=== PATIENT | male | born 1955 | race Caucasian/White ===

== ENCOUNTER 2020-07-10 10:18 | Day surgery (SDC) | payer BC ==
[2020-07-07 14:56] VITALS: BMI 42.5
[~2020-07-10 10:18] MED LIST: SODIUM CHLORIDE 0.9% 1,000 ML IV SCH
[2020-07-10] MEDS ORDERED: SODIUM CHLORIDE 0.9% 500 ML 500 ML IV ONE (10:30)
[2020-07-10] MEDS ORDERED: fentaNYL (PF) 50 MCG/ML 2 ML AMP ONE (11:04)
[2020-07-10 11:05] LABS: African American GFR (CKD) >90 (>60 ml/min/1.73 sqM); Anion Gap 4 mmol/L; Blood Urea Nitrogen 22 mg/dL (9-20); Calcium 9.1 mg/dL (8.4-10.2); Carbon Dioxide 28 mmol/L (22-30); Chloride 109 mmol/L (98-107); Glucose 101 mg/dL (74-99); Non-African American GFR(CKD) 81 (>60 ml/min/1.73 sqM); Potassium 4.7 mmol/L (3.5-5.1); Sodium 141 mmol/L (137-145)
[2020-07-10] MEDS ORDERED: PROPOFOL 10 MG/ML 20 ML VIAL IV ONE (11:47)
[2020-07-10] MEDS ORDERED: LIDOCAINE 1% INJ 10MG/ML (20 ML MDV) ONE (11:47)
[2020-07-10] MEDS ORDERED: SODIUM CHLORIDE 0.9% 1,000 ML IV ONE (12:01)
[2020-07-10 12:09] VITALS: TEMP 98.4
[2020-07-10 12:19] VITALS: RESP 16
[2020-07-10 13:34] VITALS: BP 142/82; PULSE 79
--- NOTE | 2020-07-11 10:59 | P.TEE ---
Description of Procedure(s): Date of procedure: 07/10/2020 Procedure performed: Transesophageal Echocardiogram with color flow doppler, pulsed wave doppler and continuous wave doppler, Cardioversion Moderate conscious sedation: Moderate conscious sedation was supplied by anesthesia, see separate report Complications: none Indications: Symptomatic Afib History: Patient is a pleasant 64 year old male with history of hypertension and persistent Afib. He had LOLA and cardioversion approximately 4 years ago and had been feeling fairly well however went back into Afib. Therefore decision was made to perform LOLA/cardioversion. PROCEDURE: After the risks, benefits and alternatives of the above mentioned procedure was explained in detail with the patient, informed consent was obtained. Patient was brought to the lab in a fasting state. Patient was sedated by anesthesia. The throat was sprayed with Hurricane to anesthetize the throat. A lubricated Omni probe was then introduced into the esophagus and stomach and multiple views were obtained. 2D echo with color flow doppler, pulsed wave doppler and continuous wave doppler was utilized. Agitated saline bubbles were injected to assess for any intra-atrial shunt. The probe was then removed. Direct current cardioversion was attempted with 300J which was unsuccessful however was successful with 360J with resultant sinus rhythm. Patient tolerated the procedure well. Patient was transferred to the post procedure area in stable and satisfactory condition. FINDINGS: 1. The aortic valve is tricuspid and function normally. There is no aortic stenosis and trace aortic insufficiency. 2. The mitral valve appears be normal with trace mitral regurgitation. 3. Tricuspid valve appears to be normal. 4. The interatrial septum is intact. No evidence of PFO. 5. Left atrial appendage is free of clot. 6. Left ventricular size and function appear to be normal with LV EF 55% 7. The left atrium is mildly dilated.
== END 2020-07-10 13:42 | disposition home or self-care (01) ==
LOC: CATHCVL 10:18
PROVIDERS: ATTEND Internal Medicine
DX: I48.0 Paroxysmal atrial fibrillation (principal); I10 Essential (primary) hypertension; Z87.891 Personal history of nicotine dependence; Z79.01 Long term (current) use of anticoagulants; Z79.899 Other long term (current) drug therapy; G47.33 Obstructive sleep apnea (adult) (pediatric); E78.5 Hyperlipidemia, unspecified; Z82.49 Family history of ischemic heart disease and other diseases of the circulatory system
CPT/HCPCS: 93312; 93320; 93325; 92960; 80048; 87635; J2001; J2704; 93005

== ENCOUNTER → 2020-08-19 | Outpatient (CLI) | payer BC ==
[2020-08-19 10:43] LABS: HCT 46.7 % (39.0-53.0); HGB 15.8 gm/dL (13.0-17.5); MCH 29.5 pg (25.0-35.0); MCHC 33.9 g/dL (31.0-37.0); Mean Platelet Volume 7.8; Platelet Count 250 k/uL (150-450); RBC 5.37 m/uL (4.30-5.90); RDW 12.8 % (11.5-15.5); WBC 7.2 k/uL (3.8-10.6)
[2020-08-19 11:11] LABS: African American GFR (CKD) >90 (>60 ml/min/1.73 sqM); Anion Gap 7 mmol/L; Blood Urea Nitrogen 21 mg/dL (9-20); Carbon Dioxide 28 mmol/L (22-30); Chloride 105 mmol/L (98-107); Non-African American GFR(CKD) 83 (>60 ml/min/1.73 sqM); Potassium 4.8 mmol/L (3.5-5.1); Sodium 140 mmol/L (137-145)
== END | disposition home or self-care (01) ==
LOC: LABPAT 10:13
PROVIDERS: ATTEND Internal Medicine Clinical Cardiac Electrophysiology
DX: Z01.812 Encounter for preprocedural laboratory examination (principal); I48.0 Paroxysmal atrial fibrillation
CPT/HCPCS: 36415; 80051; 82565; 84520; 85027

== ENCOUNTER 2020-09-03 09:23 | Day surgery (SDC) | payer BC ==
[2020-08-25 10:20] VITALS: BMI 43.2
[2020-09-03] MEDS: SODIUM CHLORIDE 0.9% 1,000 ML IV SCH (10:00)
[2020-09-03] MEDS ORDERED: ePHEDrine SULFATE/0.9% NACL/PF 50 MG/5 ML SYRINGE IV ONE (12:15)
[2020-09-03] MEDS ORDERED: PROPOFOL 10 MG/ML 20 ML VIAL IV ONE (12:15)
[2020-09-03] MEDS ORDERED: ROCURONIUM 10 MG/ML (5 ML VIAL) IV ONE (12:15)
[2020-09-03] MEDS ORDERED: GLYCOPYRROLATE 0.2 MG/ML 2 ML VIAL ONE (12:15)
[2020-09-03] MEDS ORDERED: MIDAZOLAM 2 MG/2 ML VIAL ONE (12:15)
[2020-09-03] MEDS ORDERED: LIDOCAINE 1% INJ 10MG/ML (20 ML MDV) ONE ×2 (12:15→12:57)
[2020-09-03] MEDS ORDERED: FUROSEMIDE 10 MG/ML 2 ML VIAL ONE (12:15)
[2020-09-03] MEDS ORDERED: PROTAMINE SULFATE 10 MG/ML 5 ML VIAL IV ONE (12:15)
[2020-09-03] MEDS ORDERED: fentaNYL (PF) 50 MCG/ML 2 ML AMP ONE (12:15)
[2020-09-03] MEDS ORDERED: PHENYLEPHRINE-0.9% NACL SYG 1,000 MCG/10 ML SYRINGE ONE (12:15)
[2020-09-03] MEDS ORDERED: SUCCINYLCHOLINE CHLORIDE VIAL 200 MG/10 ML VIAL IV ONE (12:15)
[2020-09-03] MEDS ORDERED: HEPARIN SODIUM,PORCINE 10,000 UNIT/ML 1 ML VIAL ONE (12:15)
[2020-09-03] MEDS ORDERED: NEOSTIGMINE 1 MG/ML 10 ML VIAL ONE (12:15)
--- NOTE | 2020-09-03 12:26 | P.HPCAR ---
History of Present Illness This is Dr. Echols dictating an H/P on this patient The patient was interviewed and examined IMPRESSION / ASSESSMENT: Persistent atrial fibrillation Failed electrical cardioversions and flecainide Complains of tiredness and fatigue low energy Central obesity Essential hypertension Obstructive sleep apnea on CPAP mask Preserved LV systolic function with relatively normal atria PLAN: Proceed with A. fib ablation Patient has no fever chills cough chest discomfort or any acute cardiac issues at this time that preclude general anesthesia HPI Increasing tiredness and fatigue Failed medical management for atrial fibrillation Today he denies any orthopnea PND No chest discomfort dizziness lightheadedness No fever chills cough expectoration ROS: No fever chills or rigors, no cough, phlegm or expectoration, no nausea, vomiting or diarrhea, no hematuria, dysuria, no musculoskeletal complaints, no strokes or seizures, no skin lesions. EXAMINATION: 98.1F, pulse rate in the 70s irregular Nonlabored breathing Heart sounds irregular no murmurs or gallops no rub Breath sounds are clear no rhonchi no crackles Extremities warm no edema REVIEW OF LABS, ECG & MEDICAL DATA Rhythm shows atrial fibrillation with controlled ventricular response Medications reviewed On amlodipine, myocarditis, xarelto, metoprolol and flecainide 100 mg twice daily He took Xarelto last evening Physical Exam Vitals: Vital Signs Temp Pulse Resp BP Pulse Ox 09/03/20 09:59 98.1 F 78 18 139/82 96 Intake and Output 09/02/20 09/03/20 09/03/20 22:59 06:59 14:59 Intake Total 100 Balance 100 Intake: IV 100 Past Medical History Past Medical History: Atrial Fibrillation, Hypertension, Osteoarthritis (OA), Sleep Apnea/CPAP/BIPAP Additional Past Medical History / Comment(s): uses CPAP sometimes, See Dr. Echols's H&P. FOR CARDIAC HISTORY History of Any Multi-Drug Resistant Organisms: None Reported Past Surgical History: Appendectomy, Cholecystectomy, Joint Replacement, Orthopedic Surgery, Tonsillectomy Additional Past Surgical History / Comment(s): left knee arthroscopy, left knee replaced, cardioversion Past Anesthesia/Blood Transfusion Reactions: Motion Sickness Smoking Status: Former smoker - Past Family History Father Family Medical History: Cancer Physical Examination Vital Signs Temp Pulse Resp BP Pulse Ox 09/03/20 09:59 98.1 F 78 18 139/82 96 Intake and Output 09/02/20 09/03/20 09/03/20 22:59 06:59 14:59 Intake Total 100 Balance 100 Intake: IV 100 Results Current Medications Generic Name Dose Route Start Last Admin Trade Name Dillan PRN Reason Stop Dose Admin Lactated Ringer's 1,000 mls @ 20 mls/hr 09/03/20 05:55 Lactated Ringers IV 10/03/20 05:56 .Q24H MARKUS Sodium Chloride 1,000 mls @ 20 mls/hr 09/03/20 05:55 09/03/20 10:00 Saline 0.9% IV 10/03/20 05:56 100 mls .Q24H MARKUS Administration Intake and Output 09/02/20 09/03/20 09/03/20 22:59 06:59 14:59 Intake Total 100 Balance 100 Intake: IV 100
[2020-09-03] MEDS ORDERED: LIDOCAINE 1% INJ 10MG/ML (20 ML MDV) SQ ONE (13:11)
[2020-09-03] MEDS ORDERED: HEPARIN SOD,PORK IN 0.45% NACL 25,000 UNIT in 0.45% NACL 1 250ML.BAG IV ONE (13:20)
[2020-09-03] MEDS ORDERED: HEPARIN SODIUM (1,000 UNIT/ML) 1,000 UNIT in SODIUM CHLORIDE 0.9% 1,000 ML IRRIGATION ONE (15:08)
[2020-09-03] MEDS ORDERED: SODIUM CHLORIDE 0.9% 1,000 ML IV ONE (15:30)
[2020-09-03] MEDS ORDERED: IOPAMIDOL-370 100ML BTL INJ ONE (16:13)
[2020-09-03] MEDS ORDERED: ACETAMINOPHEN IV (For NPO) 1,000 MG in EMPTY BAG 1 BAG IVPB ONE (16:25)
[2020-09-03] MEDS ORDERED: ACETAMINOPHEN TAB 325 MG TAB PO PRN (16:25)
--- NOTE | 2020-09-03 16:33 | P.EPPROC ---
- EP Procedure Note Electrophysiology Procedure Note: PROCEDURE A. fib ablation DIAGNOSIS Atrial fibrillation, symptomatic, refractory to therapy Persistent atrial fibrillation RESULT No left atrial appendage mass seen on intracardiac echo Successful A. fib ablation/pulmonary vein isolation of all veins using cryo- ablation Complete entrance block in all 4 veins confirmed No evidence for phrenic nerve injury Linear RF Ablation left atrial septum along fractionated electrograms Linear RF ablation left atrial roof Esophageal deflection YES Electrical cardioversion with a synchronized shock across the chest YES PROCEDURE DETAILS Patient was brought to the EP lab in a fasting state. Written informed consent was obtained prior to the procedure. Procedure performed under general anesthesia After initial muscle relaxant use, muscle relaxants were not given thereafter in order to assess phrenic nerve during procedure. Patient prepped and draped as per protocol Full cryo-set up with standard preparation of the cryoablation tools done. Femoral Venous access obtained on the right and left groins Venous and arterial Sheaths placed. Diagnostic catheters for the high right atrium, phrenic nerve stimulation and pacing, His bundle, RV and coronary sinus placed Intracardiac echo catheter placed. Long sheath placed in the right atrium Left and right transseptal catheterization performed under intracardiac echo guidance. Intravenous heparin with aCT above 300 Later, catheter positioning and balloon positioning in the left atrium, under intracardiac echo guidance Diagnostic EP study with Coronary sinus pacing and recording Baseline measurements Sinus cycle length 697 ms, NV interval 172 ms QRS 97 ms, QT 490 ms AH 160 ms, HV interval 41 ms Transseptal catheterization performed RA pressure 17/9 LA pressure 22/7/14 Transseptal catheterization performed with standard sheath. The cryoablation sheath was then placed with an over the wire exchange without any acute complications. All 4 pulmonary veins were isolated in the following sequence: Left superior followed by left inferior followed by right superior followed by right inferior The cryo-ablation balloon was placed at the os of each vein 1.5 mL of IV dye was injected to confirm an occluded vein Goal during cryoablation was to achieve complete occlusion of the pulmonary vein, achieve -30 degrees C at 30 seconds and achieve -40 degrees C at 60 seconds and a time to effect of less than 60-90 seconds, . If not the balloon was repositioned to obtain this result After completion of Cryoblation with durations from 180-240 seconds, entrance block was confirmed with the Attain circular catheter in a roving fashion around the antrum of the pulmonary veins Phrenic nerve pacing was performed from the SVC, right innominate vein area and diaphragm voltage was monitored. Diaphragmatic contractions were also monitored manually for strength of contraction. Parameter goals for each cryo freeze Complete occlusion of the appropriate vein -30 degrees C by 30 seconds -40 degrees C by 60 seconds Minimum between minus 40-55 degrees C Thaw time greater than 10 seconds Balloon visualized by intracardiac echo The esophagus was intubated. Esophageal Temperature monitoring with a CIRCA catheter formed. Esophageal deflection for hypothermia of the esophagus below 30 degrees C Left superior pulmonary vein Complete isolation, entrance block Left inferior pulmonary vein Complete isolation, entrance block Right superior pulmonary vein, during phrenic nerve pacing Complete isolation, entrance block Right inferior pulmonary vein, during phrenic nerve pacing Complete isolation, entrance block At the end of the procedure the Achieve catheter was once again used to check for entrance block Phrenic nerve stimulation was performed to confirm diaphragmatic stimulation the end of the procedure Cine fluoroscopy was performed at the very end of the procedure to confirm movement of both diaphragms with inspiration and expiration The RF ablation catheter and sheaths were placed in the left atrium 3-D electro-anatomic mapping was performed Voltage mapping was performed Veins are completely isolated Fractionated electrograms noted in the roof and the septum Linear ablation in the roof performed. Complete line of block made, about 2.1 cm in the anterior roof Ablation in the posterior septum from the right superior vein anteriorly to the right inferior vein anteriorly At the end of the procedure the patient was extubated Heparin was reversed Venous sheaths were removed and hemostasis assured PROCEDURES PERFORMED Diagnostic EP study CS pacing and recording Left and right transseptal catheterization 3D mapping) Intracardiac echocardiography Pulmonary vein isolation with transseptal and comprehensive EPS, [id number] Left atrial roof line, +[id number] Linear ablation, left atrium septum , +[id number] Electrical cardioversion with a synchronized shock across the chest [id number]
--- NOTE | 2020-09-03 16:42 | P.PRLE ---
RE: Eduardo Calixto Dear Connor Mr. Calixto underwent an A. fib ablation was successful isolation of all 4 pulmonary veins with complete exit block as well as linear ablation in the left atrial roof and septum He did well through the procedure At this time I would continue flecainide and Xarelto as well as his antihypertensive therapy He will continue follow-up with you and Dr. Shea as before. Thank you for entrusting me with the care of the patient Warm regards Sincerely Hany Echols
[2020-09-03] MEDS: LACTATED RINGERS 1,000 ML IV SCH (21:27)
[2020-09-03] MEDS: FLECAINIDE 50 MG TAB PO SCH (21:39)
[2020-09-04] MEDS: LACTATED RINGERS 1,000 ML IV SCH (04:52)
[2020-09-04] MEDS: SODIUM CHLORIDE 0.9% 1,000 ML IV SCH (05:38)
[2020-09-04 08:02] VITALS: BP 105/70; PULSE 91; RESP 18; TEMP 99.1
[2020-09-04] MEDS: FLECAINIDE 50 MG TAB PO SCH (08:41)
[2020-09-04] MEDS ORDERED: hydroCHLOROthiazide 12.5 MG CAP PO SCH (09:00)
[2020-09-04] MEDS ORDERED: amLODIPine 10 MG TAB PO SCH (09:00)
[2020-09-04] MEDS ORDERED: LOSARTAN 50 MG TAB PO SCH (09:00)
[2020-09-04] MEDS ORDERED: METOPROLOL SUCCINATE (ER) 50 MG TAB.ER.24H PO SCH (09:00)
[2020-09-04] MEDS ORDERED: RIVAROXABAN 20 MG TAB PO SCH (09:00)
== END 2020-09-04 14:23 | disposition home or self-care (01) ==
LOC: CATHEP 09:23 → 6NMEDSUR 16:30 → CATHEP 09-04 14:23
PROVIDERS: ATTEND Internal Medicine Clinical Cardiac Electrophysiology
DX: I48.19 Other persistent atrial fibrillation (principal); G47.33 Obstructive sleep apnea (adult) (pediatric); I10 Essential (primary) hypertension; M19.90 Unspecified osteoarthritis, unspecified site; Z79.01 Long term (current) use of anticoagulants; Z79.899 Other long term (current) drug therapy; Z87.891 Personal history of nicotine dependence
CPT/HCPCS: 92960; 93662; 93613; 93656; 93657; C1769 ×4; C1894 ×2; C1730 ×2; C1759; C1893; C1733; C1766; C1732; J2250; J0330; J2720; J1644 ×3; J1940; J2710; J2001; J3010; J0131; J2370; J2704; Q9967